=== PATIENT | female | born 1960 | race Caucasian/White ===

== ENCOUNTER 2018-05-28 15:22 | Emergency (ER) | payer SELFPAY ==
[2018-05-28] MEDS ORDERED: Dexamethasone 10 MG/ML VIAL ONE (16:00)
[2018-05-28] MEDS ORDERED: Famotidine/PF 20 mg/2ml Vial ONE (16:00)
[2018-05-28] MEDS ORDERED: diphenhydrAMINE 50 MG/ML VIAL ONE (16:00)
[2018-05-28] MEDS ORDERED: Famotidine 20 MG TAB ONE (16:01)
[2018-05-28] MEDS ORDERED: diphenhydrAMINE 50 MG CAP ONE (16:01)
== END 2018-05-28 16:08 | disposition home or self-care (01) ==
LOC: ERS 15:22
DX: T78.40XA Allergy, unspecified, initial encounter (principal); E78.5 Hyperlipidemia, unspecified; F41.9 Anxiety disorder, unspecified; F17.210 Nicotine dependence, cigarettes, uncomplicated
CPT/HCPCS: 99282; J1100; J1200; S0028

== ENCOUNTER 2019-02-01 13:09 | Emergency (ER) | payer SELFPAY ==
[~2019-02-01 13:09] MED LIST: Iopamidol-370 76% 500 ML 1 ML ONE
[2019-02-01 13:33] LABS: Bilirubin Negative (Negative); Blood, Urine 2+ (Negative); Clarity Turbid (Clear); Glucose, Urine (Dipstick) 30 mg/dL (Negative); Leukocyte 500 Leu/uL (Negative); Nitrite Negative (Negative); Protein, Urine (Dipstick) 100 mg/dL (Neg-Trace); Squamous Epithelial 0-3 HPF (0-3); Urobilinogen Normal mg/dL (Less than 2); WBC/HPF Greater than 50 HPF (0-3)
--- NOTE | 2019-02-01 13:33 | RAD ---
EXAM: Chest PA and lateral: HISTORY: Cough COMPARISON: None FINDINGS: Mild hyperinflation. Minute linear parenchymal changes in the right costophrenic angle having more of an old appearance. Heart size:Within normal limits. Lungs:Clear of acute process. No confluent pneumonia, overt edema, pleural effusion, or other acute process. IMPRESSION: No significant acute intrathoracic disease.
[2019-02-01 13:43] LABS: Bacteria/HPF 1+ HPF (None Seen)
[2019-02-01 14:00] LABS: Hemoglobin 14.3 g/dL (12.0-16.0); Mean Corpuscular Hemoglobin 30.7 pg (27.0-31.0); Mean Corpuscular Volume 90.3 fL (78.0-98.0); Mean Platelet Volume 6.5 fL (7.4-10.4); Platelet Count 330 thou/uL (130-400); RBC Distribution Width 12.2 % (11.5-14.5); Red Blood Cell (RBC) Count 4.64 mill/uL (4.20-5.40); White Blood Cell (WBC) Count 16.4 thou/uL (4.8-10.8)
[2019-02-01 14:20] LABS: ALT (SGPT) 9 U/L (8-55); AST (SGOT) 13 U/L (5-34); Albumin 3.9 g/dL (3.5-5.0); Alkaline Phosphatase 85 U/L (40-110); Anion Gap 13 mmol/L (10-20); BUN (Urea Nitrogen) 11 mg/dL (9.8-20.1); Bilirubin, Total 0.5 mg/dL (0.2-1.2); Calc. Creatinine Clearance 0 mL/min (70-130); Calcium 9.1 mg/dL (7.8-10.44); Carbon Dioxide 23 mmol/L (22-29); Chloride 101 mmol/L (98-107); Estimated GFR-MDRD 80; Globulin 2.8 g/dL (2.4-3.5); Glucose 123 mg/dL (70-105); Potassium 3.7 mmol/L (3.5-5.1); Protein, Total 6.7 g/dL (6.0-8.3); Sodium 133 mmol/L (136-145)
[2019-02-01 14:21] LABS: Band 6 % (5-11); Lymphocytes 10 % (21-51); MDiff Complete? YES; Monocytes 3 % (0-10); Neutrophil 80 % (42-75); Platelet Morphology Comment Appears Adequate; RBC Morphology Normal
[2019-02-01] MEDS ORDERED: Ketorolac Tromethamine 30 MG/ML VIAL ONE (14:56)
[2019-02-01] MEDS ORDERED: Acetaminophen 325 MG TAB ONE (14:56)
--- NOTE | 2019-02-01 17:01 | CT ---
CT OF THE ABDOMEN AND PELVIS WITH IV CONTRAST INDICATION: Left upper quadrant abdominal pain with fever and burning with urination COMPARISON: None FINDINGS: ABDOMEN: Lung bases: There are tree-in-bud nodularity seen involving the posterior lateral right lower lobe. T here is moderate emphysema. Liver: No focal lesion. Gallbladder: Normal appearing. Pancreas: Normal. Adrenal glands: Normal. Spleen: Normal. Kidneys and ureters: There is mild heterogeneous cortical enhancement involving the left kidney with mild perinephric stranding. The left kidney is mildly enlarged. The right kidney normally enhances. No hydronephrosis is evident. Vasculature: There are moderate vascular calcifications seen involving the visualized vasculature. Lymph nodes:No lymphadenopathy. Free fluid in abdomen:No free fluid is evident. PELVIS: Small and large bowel: Unopacified large and small bowel are of normal caliber. Appendix:Normal Bladder: Normal. Rectal and perirectal soft tissues:Normal. Reproductive structures: Surgically absent Free fluid in pelvis: No free fluid is evident. Lymphadenopathy pelvis: No lymphadenopathy is evident. Osseous structures: No acute osseous abnormality. No destructive osteolytic or osteoblastic lesion i s identified. There is scattered degenerative and osteoarthritic changes. Soft tissues:Normal. IMPRESSION: 1. Heterogeneous cortical enhancement with perinephric edema involving the left kidney is suspicious for left-sided pyelonephritis. Recommend correlation with clinical examination and urinary laboratories. 2. Tree-in-bud nodularity the right lower lobe is suspicious for an infectious or inflammatory bronch iolitis. There is moderate emphysema.
== END 2019-02-01 18:09 | disposition home or self-care (01) ==
LOC: ERS 13:09
DX: N10 Acute pyelonephritis (principal); E78.5 Hyperlipidemia, unspecified; J43.9 Emphysema, unspecified; F17.210 Nicotine dependence, cigarettes, uncomplicated; F41.9 Anxiety disorder, unspecified; Z79.899 Other long term (current) drug therapy
CPT/HCPCS: 36415; 71046; 74177; 80053; 81003; 81015; 85025; 87077; 87086; 87186; 87804; 96361; 96374; J1885; Q9967

== ENCOUNTER 2023-12-07 13:50 | Inpatient (IN) | payer BC, SELFPAY ==
[2023-12-07 14:29] LABS: #Basophils 0.06 10x3/uL (0.0-0.2); %Basophils 0.8 % (0.0-1.0); %Lymphocytes 22.8 % (21.0-51.0); %Monocytes 5.1 % (0.0-10.0); %Neutrophils 69.9 % (42.0-75.0); Hematocrit 52.5 % (36.0-47.0); Hemoglobin 16.5 g/dL (12.0-16.0); Mean Corpuscular HGB CONC 31.4 g/dL (32.0-36.0); Mean Corpuscular Hemoglobin 29.8 pg (27.0-31.0); Mean Corpuscular Volume 94.9 fL (78.0-98.0); Mean Platelet Volume 8.9 fL (7.4-10.4); Platelet Count 434 10x3/uL (130-400); RBC Distribution Width 13.2 % (11.5-14.5); Red Blood Cell (RBC) Count 5.53 mill/uL (4.20-5.40)
[2023-12-07 14:44] LABS: ALT (SGPT) 14 U/L (8-55); AST (SGOT) 17 U/L (5-34); Albumin 3.7 g/dL (3.4-4.8); Alkaline Phosphatase 94 U/L (40-110); Anion Gap 12 mmol/L (10-20); BUN (Urea Nitrogen) 12 mg/dL (9.8-20.1); Bilirubin, Total 0.4 mg/dL (0.2-1.2); Calc. Creatinine Clearance 0 mL/min (70-130); Calcium 9.1 mg/dL (7.8-10.44); Carbon Dioxide 29 mmol/L (23-31); Chloride 102 mmol/L (98-107); Estimated GFR 98; Globulin 2.9 g/dL (2.4-3.5); Glucose 228 mg/dL (80-115); Potassium 4.1 mmol/L (3.5-5.1); Protein, Total 6.6 g/dL (5.8-8.1); Sodium 139 mmol/L (136-145)
[2023-12-07 14:52] LABS: Troponin I 0.302 ng/mL (< 0.028)
[2023-12-07] MEDS ORDERED: Aspirin Chewable 81 MG TAB ONE (15:46)
[2023-12-07] MEDS ORDERED: Acetaminophen/Codeine 30-300mg Tablet PO PRN ×2 (16:13→21:53)
[2023-12-07] MEDS ORDERED: Ondansetron PF 4 MG/2 ML Vial IVP PRN (16:13)
[2023-12-07] MEDS ORDERED: Nitroglycerin 0.4 MG TAB (25 Tab Bottle) SL PRN (16:13)
[2023-12-07] MEDS ORDERED: Guaifenesin DM 100-10/5 ML UDCUP PO PRN (16:13)
[2023-12-07] MEDS ORDERED: Ipratropium/Albuterol 3 ML NEB NEB PRN (16:33)
[2023-12-07] MEDS ORDERED: Glucagon 1 MG/ML KIT IM PRN (16:40)
[2023-12-07] MEDS ORDERED: Dextrose 50% Abboject 50 ML SYRINGE SLOW IVP PRN (16:40)
[2023-12-07] MEDS ORDERED: Dextrose 5% in Water 1,000 ML IV PRN (16:40)
[2023-12-07] MEDS ORDERED: Enoxaparin 40 MG (0.4 mL) SYRINGE ONE (17:55)
[2023-12-07 18:20] LABS: Troponin I 0.321 ng/mL (< 0.028)
[2023-12-07 20:43] VITALS: BMI 12.4
[2023-12-07 22:02] LABS: Troponin I 0.364 ng/mL (< 0.028)
[2023-12-07] MEDS: Sodium Chloride 0.9% 1,000 ML IV SCH (22:11)
[2023-12-07] MEDS: Doxycycline 100 MG in Sodium Chloride 0.9% 100 ML IVPB SCH ×2 (22:11→22:44)
[2023-12-07] MEDS: methylPREDNISolone Sod Succ 40 MG VIAL IVP SCH ×2 (22:25)
[2023-12-07] MEDS: Doxycycline 100 MG in Syringe 0 ML IVPB SCH (22:44)
[2023-12-07 23:22] LABS: Bilirubin Negative (Negative); Blood, Urine Negative (Negative); CAUTI Indications for Culture Alt mental st,lethar; Clarity Clear (Clear); Glucose, Urine (Dipstick) Normal (Negative); Ketone, Urine Negative (Negative); Leukocyte Negative Leu/uL (Negative); Nitrite Negative (Negative); Protein, Urine (Dipstick) Negative (Neg-Trace); RBC/HPF 0-3 HPF (0-3); Specific Gravity, Urine 1.014 (1.002-1.036); Squamous Epithelial None Seen HPF (0-3); Urobilinogen Normal mg/dL (Less than 2); WBC/HPF 0-3 HPF (0-3)
[2023-12-07 23:25] LABS: Bacteria/HPF 1+ HPF (None Seen)
[2023-12-07 23:26] LABS: Urine Culture Reflex No No
[2023-12-07 23:28] LABS: Amphetamine Not Detected (NotDetected); Barbiturates Screen Not Detected (NotDetected); Benzodiazepine Screen Not Detected (NotDetected); Cocaine Metabolite Screen Detected (NotDetected); Methadone Not Detected (NotDetected); Methamphetamine Not Detected (NotDetected); Opiate Screen Not Detected (NotDetected); Oxycodone Screen Not Detected (NotDetected); Phencyclidine (PCP) Not Detected (NotDetected); THC/Cannabinoid Screen Not Detected (NotDetected); Tricyclic Screen Not Detected (NotDetected)
[2023-12-08 04:56] LABS: Hemoglobin A1c 5.4 % (4.0-6.0)
[2023-12-08 04:58] LABS: #Basophils Less than 0.03 10x3/uL (0.0-0.2); #Eosinophils Less than 0.03 10x3/uL (0.0-0.7); %Basophils 0.2 % (0.0-1.0); %Lymphocytes 4.7 % (21.0-51.0); %Monocytes 0.5 % (0.0-10.0); %Neutrophils 94.2 % (42.0-75.0); Hematocrit 48.4 % (36.0-47.0); Hemoglobin 15.4 g/dL (12.0-16.0); Mean Corpuscular HGB CONC 31.8 g/dL (32.0-36.0); Mean Corpuscular Hemoglobin 29.6 pg (27.0-31.0); Mean Corpuscular Volume 93.1 fL (78.0-98.0); Mean Platelet Volume 9.5 fL (7.4-10.4); Platelet Count 387 10x3/uL (130-400); RBC Distribution Width 13.3 % (11.5-14.5)
[2023-12-08 05:11] LABS: ALT (SGPT) 11 U/L (8-55); AST (SGOT) 18 U/L (5-34); Albumin 3.5 g/dL (3.4-4.8); Alkaline Phosphatase 88 U/L (40-110); Anion Gap 11 mmol/L (10-20); BUN (Urea Nitrogen) 18 mg/dL (9.8-20.1); Bilirubin, Total 0.3 mg/dL (0.2-1.2); Calc. Creatinine Clearance 37 mL/min (70-130); Calcium 8.9 mg/dL (7.8-10.44); Carbon Dioxide 24 mmol/L (23-31); Chloride 108 mmol/L (98-107); Cholesterol 151 mg/dl (< 200 Desired); Estimated GFR 83; Globulin 2.8 g/dL (2.4-3.5); Glucose 151 mg/dL (80-115); HDL Cholesterol 38 mg/dL (>60 Neg Risk); LDL Cholesterol, Calculated 97 mg/dL; Potassium 4.1 mmol/L (3.5-5.1); Protein, Total 6.3 g/dL (5.8-8.1); Sodium 139 mmol/L (136-145); Triglycerides 80 mg/dL (Less than 150)
[2023-12-08] MEDS: Insulin Lispro 100 UNIT/ML 10 ML VIAL SC PRN (06:05)
[2023-12-08] MEDS: Doxycycline 100 MG in Sodium Chloride 0.9% 100 ML IVPB SCH (08:37)
[2023-12-08] MEDS: FLU (Fluarix Triv) TS24-25(6MOS UP)/PF 45 MCG/0.5 ML Syringe IM ONE (08:38)
[2023-12-08] MEDS: Enoxaparin 30 MG (0.3 mL) SYRINGE SC SCH (08:38)
[2023-12-08] MEDS ORDERED: GUAIFENESIN SF SOLN 200 MG/10 ML UDCUP PO PRN (11:03)
[2023-12-08] MEDS: Budesonide 0.5 MG/2 ML NEB INH SCH ×2 (12:22→19:06)
[2023-12-08] MEDS: Nicotine 21 MG PATCH TD SCH (13:55)
[2023-12-08] MEDS: ALPRAZolam 0.25 MG TAB PO PRN (13:58)
[2023-12-08] MEDS: Benzonatate 100 MG CAP PO SCH (15:39)
[2023-12-08] MEDS ORDERED: methylPREDNISolone Sod Succ 40 MG VIAL IVP SCH (17:00)
[2023-12-08] MEDS: Montelukast Sodium 10 mg Tablet PO SCH (22:11)
[2023-12-09 04:53] LABS: #Basophils Less than 0.03 10x3/uL (0.0-0.2); #Eosinophils Less than 0.03 10x3/uL (0.0-0.7); %Basophils 0.2 % (0.0-1.0); %Lymphocytes 7.7 % (21.0-51.0); %Monocytes 0.6 % (0.0-10.0); %Neutrophils 91.1 % (42.0-75.0); Hematocrit 48.9 % (36.0-47.0); Hemoglobin 15.2 g/dL (12.0-16.0); Mean Corpuscular HGB CONC 31.1 g/dL (32.0-36.0); Mean Corpuscular Hemoglobin 29.9 pg (27.0-31.0); Mean Corpuscular Volume 96.1 fL (78.0-98.0); Mean Platelet Volume 9.3 fL (7.4-10.4); Platelet Count 401 10x3/uL (130-400); RBC Distribution Width 13.2 % (11.5-14.5); Red Blood Cell (RBC) Count 5.09 mill/uL (4.20-5.40)
[2023-12-09 05:21] LABS: Anion Gap 9 mmol/L (10-20); BUN (Urea Nitrogen) 11 mg/dL (9.8-20.1); Calc. Creatinine Clearance 48 mL/min (70-130); Calcium 8.7 mg/dL (7.8-10.44); Carbon Dioxide 28 mmol/L (23-31); Chloride 106 mmol/L (98-107); Estimated GFR 99; Glucose 144 mg/dL (80-115); Potassium 4.3 mmol/L (3.5-5.1); Sodium 139 mmol/L (136-145)
[2023-12-09] MEDS ORDERED: Regadenoson 0.4 MG/5 ML SYRINGE ONE (11:03)
[2023-12-09 14:55] VITALS: BMI 13.4
[2023-12-09] MEDS: methylPREDNISolone Sod Succ 40 MG VIAL IVP SCH (21:16)
[2023-12-10 15:39] VITALS: BP 177/76; TEMP 98.2
== END 2023-12-10 16:20 | disposition home or self-care (01) | DRG 190 ==
LOC: ERS 13:50 → 2NO 16:02
PROVIDERS: ADMIT Internal Medicine; ATTEND Internal Medicine
DX: J44.1 Chronic obstructive pulmonary disease with (acute) exacerbation (principal); I21.A1 Myocardial infarction type 2; E44.0 Moderate protein-calorie malnutrition; Z68.1 Body mass index [BMI] 19.9 or less, adult; F17.210 Nicotine dependence, cigarettes, uncomplicated; F41.9 Anxiety disorder, unspecified; F41.0 Panic disorder [episodic paroxysmal anxiety]; Z88.5 Allergy status to narcotic agent; Z88.0 Allergy status to penicillin; E11.65 Type 2 diabetes mellitus with hyperglycemia; F14.10 Cocaine abuse, uncomplicated
CPT/HCPCS: 36415; 36416; 71045; 78452; 80048; 80053; 80061; 80306; 81001; 83036; 83880; 84484; 85025; 85379; 93005; 93017; 93306; 94640; 96372; 97139; A9500; J1650; J1815; J2785; J2919; J7030; J7626

== ENCOUNTER 2025-01-29 10:02 | Emergency (ER) | payer OTHER | END 2025-01-29 13:09 | LOC: ERS 10:02 | DX: R62.7 Adult failure to thrive (principal); J44.9 Chronic obstructive pulmonary disease, unspecified; F17.210 Nicotine dependence, cigarettes, uncomplicated | CPT/HCPCS: 96372; 99283; J3010 ==